=== PATIENT | female | born 1975 | race Hispanic/Latino ===

== ENCOUNTER 2016-11-30 09:56 | Outpatient (CLI) | payer BC ==
--- NOTE | 2016-12-01 08:51 | Mammography Report ---
BILATERAL DIGITAL SCREENING MAMMOGRAM WITH CAD and BILATERAL DIGITAL DIAGNOSTIC MAMMOGRAM: 11/30/16 09:56:00 CLINICAL: Routine screening.The screening examination was reviewed at the time of exam and it was determined that a bilateral diagnostic mammogram should be performed. COMPARISON:None. FINDINGS: The breasts are heterogeneously dense, which may obscure small masses. Bilateral parenchymal asymmetries are identified on the screening exam. No architectural distortion or suspicious calcifications. Additional mammographic views including bilateral ML and spot compression views were performed and demonstrate persistent asymmetries. IMPRESSION: Bilateral asymmetries requiring ultrasound evaluation. The patient is being scheduled to return for bilateral ultrasound. BI-RADS CATEGORY: 0--Needs Additional Imaging ACR BI-RADS MAMMOGRAPHIC CODES: 0 = Needs additional imaging evaluation; 1 = Negative; 2 = Benign; 3 = Probably benign; 4 = Suspicious; 5 = Malignant; 6 = Known biopsy-proven malignancy COMMENT: 1. Dense breast tissue, i.e., adenosis, fibrocystic changes, etc., may obscure an underlying neoplasm. 2. Approximately 10% of cancers are not detected with mammography. 3. A negative mammography report should not delay biopsy if a clinically suspicious mass is present. COMMENT: Patient follow-up letters are generated via our [employer] application.
== END 2016-11-30 09:57 | disposition home or self-care (01) ==
LOC: SPVWC 09:56
PROVIDERS: ATTEND Surgery
DX: Z12.31 Encounter for screening mammogram for malignant neoplasm of breast (principal); N63 Unspecified lump in breast
CPT/HCPCS: G0202; G0204; 77066; 77067

== ENCOUNTER 2016-12-14 10:15 | Outpatient (CLI) | payer BC ==
--- NOTE | 2016-12-14 11:29 | Ultrasound Report ---
BILATERAL BREAST ULTRASOUND: 12/14/16 10:15:00 CLINICAL: Bilateral mammographic asymmetries. COMPARISON: 11/30/16 FINDINGS: Ultrasound of the right breast (including all four quadrants and the retroareolar area) was performed and demonstrated multiple benign cysts. A cyst at 9 o'clock 3 cm from the nipple measures 1.6 x 0.9 the 1.8 cm is. Cyst at 10 o'clock 3 cm from the nipple measures 1.3 x 1.1 x 1.8 cm is. Cyst at 10 o'clock 5 cm from the nipple measures 1.2 x 0.6 x 1.0 cm. A cyst at 10 o'clock 3 cm from the nipple measures 6 x 4 x 7 mm and a cyst at 11 o'clock 2 cm from the nipple measures 6 x 4 x 6 mm. No solid mass or shadowing. Ultrasound of the left breast (including all four quadrants and the retroareolar area) was performed and demonstrated three benign cysts and no solid mass or shadowing. A cyst at 1 o'clock 2 cm from nipple measures 1.2 x 1.1 x 0.4 cm. A cyst at 1 o'clock 2 cm from the nipple measures 7 x 3 x 5 mm and a cyst at 11 o'clock 3 cm from nipple measures 5 x 4 x 5 mm. IMPRESSION: Bilateral benign cysts. BI-RADS 2 - - Benign RECOMMENDATION: Routine mammographic screening.
== END 2016-12-14 10:16 | disposition home or self-care (01) ==
LOC: SPVWC 10:15
PROVIDERS: ATTEND Surgery
DX: N60.01 Solitary cyst of right breast (principal); N60.02 Solitary cyst of left breast; N64.89 Other specified disorders of breast

== ENCOUNTER 2017-07-13 12:45 | Outpatient (CLI) | payer BC ==
--- NOTE | 2017-07-14 10:36 | Magnetic Resonance Report ---
BILATERAL BREAST MRI WITHOUT AND WITH CONTRAST: 07/13/17 12:45:00 CLINICAL: High-risk patient with mammographic asymmetries. COMPARISON:11/30/16 mammograms. TECHNIQUE: Axial 1.0-mm T1 without, axial high resolution 2.0-mm T2 and axial 1.0-mm dynamic Vibrant high-resolution postcontrast T1 fat saturation sequences on a 1.5 Kandi magnet. The examination was performed with an 8 channel dedicated [employer] breast coil. Post processing with CAD and subtraction was performed on an [employer] workstation. 15.0 cc of Multihance was injected without incident via a left antecubital vein 22-gauge INT for the contrast portion of the exam. Consent was obtained prior to the administration of the contrast. FINDINGS: Right: Mild background parenchymal enhancement. No mass or suspicious enhancement. Several benign cysts. The largest cyst is located posterior at 9 o'clock and measures 1.6 cm. No suspicious lymph nodes. Left: Mild background parenchymal enhancement. No mass or suspicious enhancement. Several benign cysts. The largest cyst is posterior at 12 o'clock and measures 0.9 cm. No suspicious lymph nodes. IMPRESSION: Bilateral benign cysts and otherwise negative study. Recommend routine mammographic screening. BI-RADS 2 - - Benign --
== END 2017-07-13 12:46 | disposition home or self-care (01) ==
LOC: SPVIMAG 12:45
PROVIDERS: ATTEND Surgery
DX: N60.01 Solitary cyst of right breast (principal); N60.02 Solitary cyst of left breast
CPT/HCPCS: A9577; C8908; 77059

== ENCOUNTER 2017-12-20 10:00 | Outpatient (CLI) | payer BC ==
--- NOTE | 2017-12-20 11:30 | Mammography Report ---
BILATERAL DIGITAL SCREENING MAMMOGRAM with CAD: 12/20/17 10:00:00 CLINICAL: Routine screening.High risk for breast cancer. Bilateral benign cysts on 07/13/17 MRI COMPARISON:11/30/16 FINDINGS: The breasts are heterogeneously dense, which may obscure small masses. A left upper partially circumscribed 1 cm density requires additional imaging.No architectural distortion or suspicious calcifications.The right breast is negative. IMPRESSION: Left upper asymmetry requiring further workup. BI-RADS CATEGORY: 0 -- Additional Imaging Evaluation Required RECOMMENDATION: Recall for ultrasound of the upper left breast. ACR BI-RADS MAMMOGRAPHIC CODES: 0 = Needs additional imaging evaluation; 1 = Negative; 2 = Benign; 3 = Probably benign; 4 = Suspicious; 5 = Malignant; 6 = Known biopsy-proven malignancy COMMENT: 1. Dense breast tissue, i.e., adenosis, fibrocystic changes, etc., may obscure an underlying neoplasm. 2. Approximately 10% of cancers are not detected with mammography. 3. A negative mammography report should not delay biopsy if a clinically suspicious mass is present. COMMENT: Patient follow-up letters are generated via our [employer] application.
== END 2017-12-20 10:01 | disposition home or self-care (01) ==
LOC: SPVWC 10:00
PROVIDERS: ATTEND Surgery
DX: Z12.31 Encounter for screening mammogram for malignant neoplasm of breast (principal); N64.89 Other specified disorders of breast
CPT/HCPCS: 77067

== ENCOUNTER 2018-01-02 08:29 | Outpatient (CLI) | payer BC ==
--- NOTE | 2018-01-02 09:09 | Ultrasound Report ---
LEFT BREAST ULTRASOUND: 01/02/18 08:29:00 CLINICAL: Recalled for abnormal screening mammogram. COMPARISON: 12/20/17 screening FINDINGS: Ultrasound of the left breast was performed from 9 o'clock to 1 o'clock and demonstrated three benign cysts. A cyst at 11 o'clock 5 cm from the nipple and measures 1.0 x 0.5 x 0.9 cm and correlates with the mammographic asymmetry. A subareolar cyst at 11 o'clock measures 1.1 x 0.4 x 0.9 cm and a cyst at 1 o'clock 3 cm from the nipple measures 0.8 x 0.4 x 1.0 cm. No solid mass or shadowing. IMPRESSION: Benign cysts. BI-RADS 2 - - Benign RECOMMENDATION: Return to routine mammographic screening in one year.
== END 2018-01-02 08:30 | disposition home or self-care (01) ==
LOC: SPVWC 08:29
PROVIDERS: ATTEND Surgery
DX: R92.8 Other abnormal and inconclusive findings on diagnostic imaging of breast (principal)

== ENCOUNTER 2018-12-26 09:41 | Outpatient (CLI) | payer BC ==
--- NOTE | 2018-12-26 10:17 | Mammography Report ---
BILATERAL DIGITAL SCREENING MAMMOGRAM with CAD : 12/26/18 09:41:00 CLINICAL: Routine screening.Known cysts. COMPARISON:12/20/17 screening mammogram and 12/14/16 bilateral breast ultrasound FINDINGS: The breasts are heterogeneously dense, which may obscure small masses. No mass, architectural distortion or suspicious calcifications. IMPRESSION: No mammographic evidence of malignancy. BI-RADS CATEGORY: 2 -- Benign RECOMMENDATION: Routine mammographic screening in one year. COMMENT: Patient follow-up letters are generated by our [email or web address] application.
== END 2018-12-26 09:42 | disposition home or self-care (01) ==
LOC: SPVWC 09:41
PROVIDERS: ATTEND Surgery
DX: Z12.31 Encounter for screening mammogram for malignant neoplasm of breast (principal)
CPT/HCPCS: 77067

== ENCOUNTER 2020-01-01 08:33 | Outpatient (CLI) | payer BC ==
--- NOTE | 2020-01-01 09:37 | Mammography Report ---
DIGITAL SCREENING MAMMOGRAM WITH CAD, 01/01/2020 INDICATION: Routine screening mammography. TECHNIQUE: Digital bilateral 2D mammography was obtained in the craniocaudal and mediolateral obliq ue projections. This examination was interpreted with the benefit of Computer-Aided Detection analysi s. COMPARISON: 12/26/2018, 12/20/2017 FINDINGS: Breast Density: The breasts are extremely dense, which lowers the sensitivity of mammography. There is no evidence of dominant mass, suspicious calcifications or architectural distortion in the r ight breast. There is a new circumscribed nodular density in the left breast measuring 2 cm at the 1: 00 position middle depth. This may represent a benign finding such as a cyst but ultrasound is recomm ended. IMPRESSION: Follow up recommendation: Ultrasound Category 0: Incomplete. Needs additional imaging evaluation and/or prior mammograms for comparison. A "normal" or negative report should not discourage follow up or biopsy of a clinically significant f inding. A written summary of these findings will be mailed to the patient. The patient will be entered into a mammography reporting system which will generate a reminder letter for the patient's next appointmen t at the appropriate interval. The [employer] recommends yearly mammograms starting at age 40 and continuing as l stan as a woman is in good health. Breast MRI is recommended for women with an approximate 20-25% or greater lifetime risk of breast cancer, including women with a strong family history of breast or ova mily cancer or who have been treated for Hodgkin's disease. Signer Name: Yolis Vasquez MD Signed: 01/01/2020 9:32 AM Workstation Name: [id number]
== END 2020-01-01 08:34 | disposition home or self-care (01) ==
LOC: SPVWC 08:33
PROVIDERS: ATTEND Surgery
DX: Z12.31 Encounter for screening mammogram for malignant neoplasm of breast (principal)
CPT/HCPCS: 77067

== ENCOUNTER 2020-07-22 08:45 | Outpatient (CLI) | payer BC ==
--- NOTE | 2020-07-22 10:15 | Ultrasound Report ---
ULTRASOUND BREAST BILATERAL LIMITED, 07/22/2020 CLINICAL INFORMATION / INDICATION: DIFFUSE CYSTIC MASTOPATHY. Follow up bilateral complicated breast cysts. TECHNIQUE: Targeted ultrasound evaluation was performed of the area of interest. COMPARISON: Bilateral breast ultrasound 01/15/20. FINDINGS: RIGHT: There are multiple small simple and mildly complicated cysts in the right upper outer quadrant at the 10:00 position 4 cm from the nipple. The largest complicated cysts measures approximately 9 m m. No suspicious feature is seen. No solid mass or other abnormality is identified. LEFT: There is a 9 mm ovoid complicated cyst in the left breast at the 1:00 position 4 cm from the ni pple. An adjacent complicated cyst in this area measures 7 mm. There is also a 1.2 cm simple cyst at the 12:30 position 3 cm from the nipple. This lesion measured 1.7 cm previously and contained diffuse low-level internal echoes. No solid lesion is seen. IMPRESSION: Multiple benign-appearing simple and mildly complicated cysts bilaterally. The previously described complex/complicated cyst in the left breast is smaller and now simple in appearance. Follow up recommendation: Routine yearly BI-RADS Category 2: Benign. A normal or "negative" report should not preclude biopsy or follow-up of a clinically suspicious find ing. Signer Name: J Luis Castillo MD Signed: 07/22/2020 10:11 AM Workstation Name: [id number]
== END 2020-07-22 08:46 | disposition home or self-care (01) ==
LOC: SPVWC 08:45
PROVIDERS: ATTEND Surgery
DX: N60.02 Solitary cyst of left breast (principal); N60.01 Solitary cyst of right breast; Z80.3 Family history of malignant neoplasm of breast

== ENCOUNTER 2020-07-30 08:43 | Outpatient (CLI) | payer BC ==
--- NOTE | 2020-07-30 10:33 | Magnetic Resonance Report ---
BILATERAL BREAST MRI WITH AND WITHOUT CONTRAST CLINICAL INFORMATION/INDICATION: Patient has strong family history of breast cancer with 2 sisters di agnosed in their 30s. Patient had recent mammogram and bilateral ultrasound exams which showed compli cated cysts. TECHNICAL: Coronal STIR, axial T1 and T2-weighted fat sat images were obtained precontrast. Gadoliniu m-based contrast was injected intravenously and serial axial T1 weighted images with fat saturation w ere obtained. 3-D MIP projections, kinetic analysis and subtraction imaging was utilized to evaluate. A dedicated 8-channel breast coil was used for image acquisition. COMPARISON: Prior screening bilateral mammogram 01/01/2020 and prior bilateral breast ultrasound exams dated 01/15/2020 and 07/22/2020 FINDINGS: Right breast: Numerous simple cysts of various sizes are seen scattered throughout the right breast. The largest cyst measures approximately 16 mm in the upper outer quadrant. There are 2 enhancing masses identified within the right breast. There is a 10 mm oval enhancing mass in the upper outer quadrant, posterior depth. It is located adjacent to a 16 mm simple cyst. I belie ve this enhancing mass corresponds to a hypoechoic mass seen at 10:00, 4 cm from nipple on most recen t ultrasound. This did not have the appearance of a simple cyst. I would recommend ultrasound-guided biopsy of the mass at 10:00. The second enhancing mass is in the lower outer quadrant measuring 6 mm, posterior depth, at approxim ately 8:00. This is slightly high signal on T2-weighted images suggesting it may just represent a jennifer y small complicated/inflammatory cyst or fibroadenoma. Left breast: Numerous simple cysts of various sizes are seen scattered throughout the left breast. Th e largest cyst measures approximately 1 cm and is located in the upper inner quadrant anteriorly. The re is no abnormal enhancement or other suspicious finding identified within the left breast. Additional findings: No axillary or internal mammary adenopathy is noted. Limited visualization of th oracic spine and liver show no obvious abnormality. IMPRESSION: 1. Numerous bilateral simple cysts. 2. 10 mm enhancing mass in the right breast at 10:00. I believe that this most likely correlates with hypoechoic mass seen on recent ultrasound at 10:00, 4 cm from nipple. This mass is immediately adjac ent to a 16 mm simple cyst. Recommend ultrasound-guided biopsy of this mass. Assuming pathology is be nign, I would recommend obtaining bilateral MRI in 6 months to ensure appropriate mass was biopsied. 3. Small probably benign enhancing mass in the 8:00 position of the right breast felt to most likely be benign, possibly fibroadenoma or inflammatory cyst.. This enhancing mass can be evaluated at time of 6 month follow-up MR to ensure stability. 4. No abnormal finding within the left breast of significance. Follow up recommendation: Ultrasound-guided right breast biopsy. BI-RADS Category 4: Suspicious for Malignancy. Signer Name: Nancy Vidal MD Signed: 07/30/2020 10:29 AM Workstation Name: [id number]
== END 2020-07-30 08:44 | disposition home or self-care (01) ==
LOC: SPVIMAG 08:43
PROVIDERS: ATTEND Surgery
DX: N60.01 Solitary cyst of right breast (principal); N60.02 Solitary cyst of left breast; N63.11 Unspecified lump in the right breast, upper outer quadrant; Z80.3 Family history of malignant neoplasm of breast
CPT/HCPCS: A9577; C8908; 77049

== ENCOUNTER 2020-08-25 07:47 | Outpatient (CLI) | payer BC ==
--- NOTE | 2020-08-25 09:47 | Ultrasound Report ---
Limited right breast Ultrasound HISTORY: RIGHT ABNORMAL MAMMOGRAM. High risk patient with multiple known breast cysts, more recently with an MRI which showed a 1 cm area of enhancement interposed between several cysts, here for biops y TECHNIQUE: Grayscale and color imaging performed. COMPARISON: MRI from 07/30/2020 and breast ultrasound from 07/22/2020 FINDINGS: A cluster of simple cysts are visualized, one of which measuring 9 mm in maximal dimension and interposed between 2 other cysts. No other abnormality identified. IMPRESSION: A cluster of simple cysts is present in the region in question in the right breast at kings roximately the 10:00 position 4 cm from the nipple. I discussed this case with Dr. Moody and also with the patient. I think the patient would best benefit from a repeat MRI with potential MRI guided biopsy at that time. We are currently holding a time slot for 09/10/2020 since this works best with t he patient schedule. Signer Name: Jose Luis Chapa MD Signed: 08/25/2020 9:42 AM Workstation Name: [id number]
== END 2020-08-25 07:48 | disposition home or self-care (01) ==
LOC: US 07:47
PROVIDERS: ATTEND Surgery
DX: N60.01 Solitary cyst of right breast (principal)

== ENCOUNTER 2020-10-01 12:31 | Outpatient (CLI) | payer BC ==
--- NOTE | 2020-10-01 15:23 | Ultrasound Report ---
ULTRASOUND-GUIDED VACUUM-ASSISTED RIGHT BREAST BIOPSY INDICATION: Complicated cystic area on ultrasound showing mild enhancement on MR COMPARISON: Bilateral breast ultrasound 01/15/2020, bilateral breast ultrasound 07/22/2020, MR breast 07/30/2020, right breast ultrasound 08/25/2019 COMMENT: Complicated case involving multiple modalities with recent recommendations for both ultrasou nd and possible MR guided biopsy of a complicated cystic lesion in the upper outer right breast showi ng mild rim enhancement on MR. Patient has a strong family history of breast cancer. After detailed r eview of the prior studies, I discussed the situation with Dr. Moody. As the lesion in question d oes appear to strongly to correlate between ultrasound and MR, the course of action decided upon was to perform ultrasound-guided biopsy today with follow-up MR in 6 months to both examine this area and an additional probably benign area of enhancement mentioned in the lower outer right breast on MR in July. I discussed this plan of action with the patient and she understands and agrees with the c ourse of action. CONSENT: Procedure was discussed at length in advance with the patient. Possible risks and benefits w ere discussed including the possibility of bleeding. Postbiopsy care was discussed. Opportunity for q uestions was provided. Patient is not on anticoagulant therapy and reports no pertinent allergies. PROCEDURE: Timeout was performed. The complicated cyst in question residing between several simple cy sts was targeted sonographically. Using aseptic technique and under local anesthesia, with real-time sonographic guidance, the area of interest was biopsied. Multiple specimens were obtained with a 13-g auge mammotome vacuum assisted biopsy device and sent to pathology for analysis. A metallic clip was placed at the end of the procedure. Site was secured and the patient was sent for post biopsy mammogr am. Patient tolerated the procedure well and left the department in good condition. IMPRESSION: Successful ultrasound-guided right breast biopsy Signer Name: Richard Gray MD Signed: 10/01/2020 3:19 PM Workstation Name: [id number]
--- NOTE | 2020-10-01 15:42 | Mammography Report ---
DIGITAL DIAGNOSTIC MAMMOGRAM WITH CAD CONVENTIONAL, 10/01/2020 CLINICAL INFORMATION / INDICATION: Post ultrasound-guided biopsy TECHNIQUE: Digital right mammographic imaging was performed. This examination was interpreted with the benefit of Computer-aided Detection analysis. COMPARISON: Screening mammography 01/01/2020 FINDINGS: Breast Density: The breasts are heterogeneously dense, which may obscure small masses. Clip is seen in the upper outer quadrant, mid depth, appearing to be at the expected location of the MR and sonographic abnormality. IMPRESSION: Acceptable clip placement Follow up recommendation: Per biopsy results (see biopsy report discussion) Post biopsy imaging. A "normal" or negative report should not discourage follow up or biopsy of a clinically significant f inding. A written summary of these findings will be mailed to the patient. The patient will be entered into a mammography reporting system which will generate a reminder letter for the patient's next appointmen t at the appropriate interval. According to the [employer], yearly mammograms are recommended starting at age 40 and continuing as long as a woman is in good health. Breast MRI is recommended for women with an kings roximately 20-25% or greater lifetime risk of breast cancer, including women with a strong family his tory of breast or ovarian cancer and women who have been treated for Hodgkin's disease. Signer Name: Richard Gray MD Signed: 10/01/2020 3:38 PM Workstation Name: [id number]
== END 2020-10-01 12:32 | disposition home or self-care (01) ==
LOC: SPVIMAG 12:31
PROVIDERS: ATTEND Surgery
DX: N63.11 Unspecified lump in the right breast, upper outer quadrant (principal); R92.8 Other abnormal and inconclusive findings on diagnostic imaging of breast; N64.89 Other specified disorders of breast; N60.11 Diffuse cystic mastopathy of right breast
CPT/HCPCS: 88305

== ENCOUNTER 2021-01-01 09:09 | Outpatient (CLI) | payer BC ==
--- NOTE | 2021-01-01 12:51 | Mammography Report ---
DIGITAL SCREENING MAMMOGRAM WITH CAD, 01/01/2021 CLINICAL INFORMATION / INDICATION: Routine screening mammography. TECHNIQUE: Digital bilateral 2D mammography was obtained in the craniocaudal and mediolateral obliqu e projections. This examination was interpreted with the benefit of Computer-Aided Detection analysis . COMPARISON: 10/01/2020, 01/01/2020, 12/26/2018, 12/20/2017 FINDINGS: Breast Density: The breasts are extremely dense, which lowers the sensitivity of mammography. No dominant mass, suspicious calcifications, or architectural distortion in either breast. Biopsy marker with associated nodular density in the right breast is again noted and appears unchange d. IMPRESSION: No mammographic evidence of malignancy. Follow up recommendation: Routine yearly BI-RADS Category 2: Benign. A "normal" or negative report should not discourage follow up or biopsy of a clinically significant f inding. A written summary of these findings will be mailed to the patient. The patient will be entered into a mammography reporting system which will generate a reminder letter for the patient's next appointmen t at the appropriate interval. The [employer] recommends yearly mammograms starting at age 40 and continuing as l stan as a woman is in good health. Breast MRI is recommended for women with an approximate 20-25% or greater lifetime risk of breast cancer, including women with a strong family history of breast or ova mily cancer or who have been treated for Hodgkin's disease. Signer Name: Yolis Vasquez MD Signed: 01/01/2021 12:46 PM Workstation Name: [id number]
== END 2021-01-01 09:10 | disposition home or self-care (01) ==
LOC: SPVWC 09:09
PROVIDERS: ATTEND Surgery
DX: Z12.31 Encounter for screening mammogram for malignant neoplasm of breast (principal); N64.89 Other specified disorders of breast
CPT/HCPCS: 77063; 77067